=== PATIENT | female | born 2000 | race Caucasian/White ===

== ENCOUNTER 2020-08-16 17:42 | Emergency (ER) | payer BC ==
[~2020-08-16] VITALS: Ht 160 cm; Wt 72.7 kg
[2020-08-16 17:44] VITALS: TEMP 98.1
[2020-08-16] MEDS ORDERED: AMOXICILLIN 8751 TAB PO (19:13)
[2020-08-16 19:45] VITALS: BP 119/77; PULSE 86
== END 2020-08-16 19:45 | disposition home or self-care (01) ==
LOC: COL.ER 17:42
DX: S81.011A Laceration without foreign body, right knee, initial encounter (principal); W10.1XXA Fall (on)(from) sidewalk curb, initial encounter
CPT/HCPCS: L1846